=== PATIENT | male | born 1965 | race Caucasian/White ===

== ENCOUNTER 2016-09-19 16:34 | Emergency (ER) | payer OTHER ==
[~2016-09-19] VITALS: Wt 81.8 kg
[~2016-09-19 16:34] MED LIST: DOCU-144 PO; HYDR25SU23 PR
[2016-09-19] MEDS ORDERED: HYDROCODONE/APAP (5/325) TAB PO ONE (17:30)
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
[2016-09-19] MEDS ORDERED: HYDR-906 PO (18:59)
[2016-09-19] MEDS ORDERED: NAPR-260 PO (19:00)
[2016-09-19] MEDS ORDERED: CYCL-319 PO (19:00)
== END 2016-09-19 19:16 | disposition home or self-care (01) ==
LOC: FTE 16:34
DX: S39.92XA Unspecified injury of lower back, initial encounter (principal); S89.92XA Unspecified injury of left lower leg, initial encounter; V43.52XA Car driver injured in collision with other type car in traffic accident, initial encounter
CPT/HCPCS: 72100; 73550; 73590; Z7502; Z7610